=== PATIENT | female | born 1960 | race Caucasian/White ===

== ENCOUNTER 2017-01-30 18:37 | Emergency (ER) | payer BC, OTHER ==
[~2017-01-30] VITALS: Ht 165.1 cm; Wt 137.3 kg
[~2017-01-30 18:37] MED LIST: CHLO4TAB PO; LEVO200T28 PO; LSX40 PO; PTDOPS OPB
[2017-01-30 18:41] VITALS: TEMP 36.6; Ht 165.1 cm; Wt 137.3 kg
[2017-01-30] MEDS ORDERED: GABA1CAP4 PO (18:57)
[2017-01-30] MEDS ORDERED: SYN200 PO (18:57)
[2017-01-30] MEDS ORDERED: FURO40TA3 PO (18:57)
--- NOTE | 2017-01-30 19:12 | DIAGNOSTIC IMAGING REPORT ---
LEFT FOOT MIN 3 VIEWS ROUTINE CLINICAL HISTORY: Left foot pain status post trauma COMPARISON: None. DISCUSSION: There is a nondisplaced transverse fracture through the base the fifth metatarsal. There are no subluxations. Osteoarthritic changes are present at the level the first metatarsal phalangeal joint. There is a plantar calcaneal spur. There is a calcification the region the posterior plantar fascia. There is a talar beak. There is a small corticated ossicle at the level of the talonavicular joint. IMPRESSION: Acute nondisplaced transverse fracture through the base of the fifth metatarsal Electronically signed by: Sid Maldonado M.D. 01/30/2017 7:11 PM Dictated Date/Time: 01/30/2017 7:09 PM
[2017-01-30] MEDS ORDERED: NORCO 5/325MG HOME PACK PO ONE (19:30)
[2017-01-30 19:59] VITALS: BP 154/104; PULSE 75; O2SAT 97
--- NOTE | 2017-01-30 20:20 | EMERGENCY ROOM VISIT NOTE ---
ED Visit Note First contact with patient: 18:48 CHIEF COMPLAINT: Left Foot injury This 56-year-old white female patient sustained an injury to the left foot earlier today when she got up to walk but noticed her foot was numb. It had fallen asleep. She tried to ambulate but twisted her foot awkwardly. She heard a snap or crack. She had immediate onset of pain. Pain persists as worse with weight-bearing. No prior history of significant foot injury. Mild swelling has developed. No current numbness or weakness. No ankle pain. Her mother accompanies her today. Patient denies any knee pain. REVIEW OF SYSTEM: HEENT: No dizziness, visual problems, hearing loss, or tinnitus. There is no difficulty swallowing and no oral lesions are present. PULMONARY: No cough, shortness of breath, sputum production or hemoptysis. CARDIOVASCULAR: No chest pain, palpitations, shortness of breath or peripheral edema. GASTROINTESTINAL: No diarrhea, constipation, nausea, vomiting, or abdominal pain. GENITOURINARY: No dysuria, frequency, urgency or nocturia. NEUROLOGIC: No weakness, muscle tenderness, epilepsy or history of neurological problems. MUSCULOSKELETAL: No history of joint tenderness/swelling. No history of arthritis or arthralgias. SKIN: No rashes or lesions. PSYCHIATRIC: No history of depression or mental illness. ENDOCRINE: No history of diabetes or abnormal hair growth. PMH: Significant for history of bronchitis, pneumonia, GERD, and cholecystitis. Known osteoarthritis. Obesity. IBS. Previous surgeries: Cholecystectomy, right and left carpal tunnel releases, bilateral knee replacements, thyroid lobectomy Family history: Significant for diabetes, heart disease, hypertension, cancer, kidney stones. Allergies: Codeine, Percocet, sulfa, tetracycline, tramadol, prednisone Current medications: Reviewed and filed in patient's chart SOCIAL HISTORY: Patient lives at home by herself. Employed. No tobacco use, occasional EtOH use. PHYSICAL EXAM: Vital Signs: Reviewed Nurse's notes. Afebrile. GENERAL: Alert, oriented and coherent, not in acute distress. Laying on a bed. Skin: Warm and dry with good turgor. No rashes or lesions. No ecchymosis or erythema. Mild edema present over the lateral aspect of the left foot. The patient is not diaphoretic. No abrasions. Foot: There is tenderness and swelling over the fifth metatarsal dorsally, laterally, and on the plantar surface, but no deformity. No pain with palpation over the malleoli, Achilles, calcaneus. No pain with palpation over the first through fourth metatarsals. Intact motor function of the toes. Intact motor function to the ankle. Resisted eversion increases pain. Passive inversion also increases pain. Neurologic: Gross sensation is intact across the foot and ankle by soft touch. Peripheral pulses are 2+. EMERGENCY DEPARTMENT COURSE: An X-ray of the foot shows a nondisplaced fracture of the fifth metatarsal base. This was read by radiology. TREATMENT: Patient was educated regarding today's findings. Conservative care measures were discussed. She was placed in a low candidate for protection and support. She has crutches. Weight-bear as tolerated in the boot. It should be on for all activity other than bathing and sleep. Ice and elevation frequently for the next 3 days. Use a compression wrap if needed. Tylenol 650 mg every 6 hours for the pain. Supplement with Mobitz 15 mg once a day. If that is not enough, she has Girard 5 mg at home. Additional home pack was provided. Avoid weight bearing and use crutches until the pain subsides. Follow up with her orthopedic surgeon this week for reexamination. DIAGNOSIS: Left foot nondisplaced fifth metatarsal fracture Problem List Medical Problems: (1) GERD (gastroesophageal reflux disease) Status: Chronic (2) Osteoarthritis Status: Chronic Current/Historical Medications Scheduled Furosemide (Lasix), 40 MG PO DAILY Gabapentin (Gabapentin), 300 MG PO TID Levothyroxine Sodium (Synthroid), 200 MCG PO DAILY Spironolactone (Spironolactone), 25 MG PO BID Allergies Coded Allergies: Codeine (Verified Allergy, Unknown, ITCHING, 08/07/14) Oxycodone (Verified Allergy, Unknown, LONG AGO WAS ITCHY, HYDOCODONE IS OK , 08/07/14) PER DR NGO'S ORDER 07/14/09, PT STATES SHE CAN TAKE OXYCODONE EVEN THOUGH SHE EXPERIENCED ALLERGY TO OXYCODONE Sulfa Drugs (Verified Allergy, Unknown, SWOLLEN & RASH A CHILD, ) Tetracycline (Verified Allergy, Unknown, HEADACHES, 08/07/14) Tramadol (Verified Allergy, Unknown, ITCHINESS, 08/07/14) Vital Signs Date Time Temp Pulse Resp B/P Pulse Ox O2 Delivery O2 Flow Rate FiO2 01/30/17 19:59 75 18 154/104 97 01/30/17 18:41 36.6 75 18 150/90 97 Room Air Medications Administered Medications (Trade) Dose Ordered Sig/Neli Route Start Time Stop Time Status Last Admin Dose Admin Acetaminophen/ Hydrocodone Bitart (Girard 5/325mg Home Pack) 1 homepack UD ONCE PO 01/30/17 19:30 01/30/17 19:31 DC 01/30/17 19:52 1 HOMEPACK Departure Information Impression Primary Impression: Fracture of metatarsal bone Dispostion Home / Self-Care Condition GOOD Referrals Elliot Dickey MD Forms HOME CARE DOCUMENTATION FORM, SPECIAL NARCOTICS INSTRUCTIONS, TYLENOL USE, IMPORTANT VISIT INFORMATION Patient Instructions My [facility] Additional Instructions Use crutches until you can walk without a limp- weight-bear as tolerable in the boot Ice and elevate intermittently x3 days, and then use moist heat Tylenol every 6 hours as needed for pain Add Mobic once per day Gentle motion daily See your orthopedist this for reexamination-call tomorrow for an appointment You do not need the boot for sleeping or bathing but it should be on at all other times Girard one to 2 tablets every 6 hours as needed for severe pain-no driving
[2017-01-30] MEDS ORDERED: SPR25 PO (21:20)
== END 2017-01-30 20:00 | disposition home or self-care (01) ==
LOC: C.EDB 18:38 → C.EDD 20:00
DX: S92.302A Fracture of unspecified metatarsal bone(s), left foot, initial encounter for closed fracture (principal); X50.9XXA Other and unspecified overexertion or strenuous movements or postures, initial encounter; M19.90 Unspecified osteoarthritis, unspecified site

== ENCOUNTER → 2017-09-16 | Outpatient (CLI) | payer BC ==
[~2017-09-16] MED LIST changes: -CHLO4TAB PO; +FURO40TA3 PO; +GABA1CAP4 PO; -LEVO200T28 PO; -LSX40 PO; -PTDOPS OPB; +SPR25 PO; +SYN200 PO
--- NOTE | 2017-09-20 15:29 | MAMMOGRAPHY REPORT ---
BILATERAL DIGITAL SCREENING MAMMOGRAM TOMOSYNTHESIS WITH CAD: 09/16/2017 CLINICAL HISTORY: Routine screening. Patient has no complaints. TECHNIQUE: Breast tomosynthesis in addition to standard 2D mammography was performed. Current study was also evaluated with a Computer Aided Detection (CAD) system. COMPARISON: Comparison is made to exams dated: 08/12/2016 mammogram, 08/11/2015 mammogram, 4 mammogram, 08/06/2013 mammogram, 05/24/2011 mammogram, and 05/15/2010 mammogram - [facility]. BREAST COMPOSITION: There are scattered areas of fibroglandular density in both breasts. FINDINGS: No suspicious masses, calcifications, or areas of architectural distortion are noted in ei ther breast. There has been no significant interval change compared to prior exams. Asymmetry with a ssociated punctate calcifications in the right upper outer quadrant is stable compared to multiple pr ior exams including the 2010 exam, and considered benign given long-term stability. IMPRESSION: ACR BI-RADS CATEGORY 2: BENIGN There is no mammographic evidence of malignancy. A 1 year screening mammogram is recommended. The pa tient will receive written notification of the results. Approximately 10% of breast cancers are not detected with mammography. A negative mammographic report should not delay biopsy if a clinically suggestive mass is present. Vesta Fritz M.D. /:09/16/2017 16:26:28 Chief Construction Inspector: Ester RAMOS)(Danial)([place]), [facility] letter sent: Normal 1/2 BI-RADS Code: ACR BI-RADS Category 2: Benign
== END | disposition home or self-care (01) ==
LOC: C.MAMM 13:46
PROVIDERS: ATTEND Obstetrics & Gynecology
DX: Z12.31 Encounter for screening mammogram for malignant neoplasm of breast (principal)

== ENCOUNTER 2020-02-06 16:16 | Inpatient (IN) ==
--- NOTE | 2020-02-06 16:40 | Anesthesiology Consultation ---
Date of Service February 06, 2020 Assessment & Plan Chart Review Chart Review: Acceptable Risk for Surgery and Patient NOT seen in Pre Admission Testing Consults Requested none ASA [id number] Proposed Anesthesia Anesthesia Type: General Risk / Benefits Reviewed With: PT / POA / Parent / Guardian, Accepts Plan and Informed Consent Obtained History Surgery Operation Date: 02/06/20 09:20 Proposed Procedures p Left Knee Closed Reduction Total Knee Arthroplasty - Radu Campbell, Height/Weight Height: 5 ft 5 in Weight: 134.263 kg Allergies Allergy/AdvReac Type Severity Reaction Status Date / Time codeine Allergy Unknown ITCHING Verified 02/06/20 16:31 oxycodone Allergy Unknown LONG AGO Verified 02/06/20 16:31 WAS ITCHY, HYDOCODONE IS OK Sulfa (Sulfonamide Allergy Unknown SWOLLEN & Verified 02/06/20 16:31 Antibiotics) RASH A CHILD tetracycline Allergy Unknown HEADACHES Verified 02/06/20 16:31 tramadol Allergy Unknown ITCHINESS Verified 02/06/20 16:31 Medications Home Medications Medication Instructions Recorded Confirmed Last Taken bupropion HCl 150 mg PO BID 02/05/20 02/06/20 02/06/20 furosemide 40 mg PO DAILY 02/05/20 02/06/20 02/04/20 gabapentin 300 mg PO TID 02/05/20 02/06/20 02/06/20 05:00 hydrocodone-acetaminophen [[place]] 1 tab PO Q6H PRN #12 tab 02/05/20 02/06/20 02/06/20 11:00 levothyroxine [Synthroid] 200 mcg PO DAILY 02/05/20 02/06/20 02/06/20 05:00 spironolactone 25 mg PO BID 02/05/20 02/06/20 02/04/20 NPO Date Last Intake of Fluids: 02/06/20 Time Last Intake of Fluids: 13:00 Date Last Intake of Solids: 02/06/20 Time Last Intake of Solids: 13:00 Past Medical History Medical History Carpal tunnel syndrome on both sides (Acute) Cholecystectomy planned (Acute) Exercise / Class Metabolic Activity III < 4 Walking/Shop/Light housework Past Anesthesia History No Hx of Anesthesia Complications and No Family Hx of Anesthesia Complications History of PONV No Hx of PONV and No Hx of Motion Sickness Social History Smoking Status: Never smoker Physical Exam Constitutional + morbidly obese ENMT Mouth: no dentition abnormality Thyromental Distance: < 3.5 Finger Breadths Mallampati Class: II Neck normal visual inspection and trachea midline; neck extension not limited Respiratory normal respiratory effort Auscultation: lungs clear to auscultation bilaterally Cardiovascular Rate/Rhythm: regular rate and regular rhythm Heart Sounds: no murmur Vessels: no carotid bruit Musculoskeletal Spine: normal cervical ROM Extremities: extremities normal to inspection Neurologic moves all extremities Motor/Sensory: no sensory deficit Psychiatric Orientation: alert and oriented x 3 Testing Chest X-Ray Date: 10/24/19 Findings: + NAD Echocardiogram Date: 03/05/14 EF: 65 LV Function: normal RWMA: + none Valvular Disease: + no significant valvular disease
[2020-02-06] MEDS ORDERED: MIDAZOLAM HCL 1 MG/ML 2ML VIAL ONE (16:41)
[2020-02-06] MEDS ORDERED: fentaNYL citrate 100 MCG/2 ML VIAL ONE (16:42)
[2020-02-06] MEDS ORDERED: LACTATED RINGER'S 1,000 ML IV SCH (17:00)
[2020-02-06] MEDS ORDERED: PROPOFOL IV EMULSION 10 MG/ML 20 ML VIAL IV ONE (17:50)
[2020-02-06] MEDS ORDERED: ONDANSETRON INJ 2 MG/ML 2 ML VIAL ONE (17:50)
[2020-02-06] MEDS ORDERED: LIDOCAINE HCL 2% 2 ML VIAL/AMP(20MG/ML) INFIL ONE (17:50)
[2020-02-06] MEDS ORDERED: SUCCINYLCHOLINE 100MG/5ML SYR ONE (17:50)
--- NOTE | 2020-02-06 18:00 | Post Operative Brief Note ---
Immediate Post Op Note v1 Date of Surgery February 06, 2020 Pre & Post Diagnosis Operation Date: 02/06/20 09:20 Pre-Op Diagnosis: Left Knee Total Knee Arthroplasty Dislocation Post-Op Diagnosis: Left Knee Total Knee Arthroplasty Dislocation I identified the patient and participated in the time-out.: Yes Procedure Operation Date: 02/06/20 09:20 Actual Procedures p Left Knee Closed Reduction Total Knee Arthroplasty(Left) - Radu Campbell DO - [id number] Surgeon Radu Campbell DO Tick Inspector None Estimated Blood Loss 0 Findings Consistent with Post-Op Diagnosis Specimens None Anesthesia Type General Complications none Disposition Disposition: Recovery Room Overlapping Procedure I was present for: the critical portions of procedure. I was immediately available: during the entire case. Back up surgeon: was not required during procedure.
[2020-02-06] MEDS ORDERED: ePHEDrine sulfate 50 MG/ML AMP IV PRN (18:16)
[2020-02-06] MEDS ORDERED: LABETALOL HCL IV 5 MG/ML 20ML IV PRN (18:16)
[2020-02-06] MEDS ORDERED: ATROPINE SULFATE 0.1 MG/ML 10ML SYR IV PRN (18:16)
[2020-02-06] MEDS ORDERED: PROMETHAZINE HCL 12.5 MG in SODIUM CHLORIDE 0.9% 50 ML IV PRN (18:16)
[2020-02-06] MEDS ORDERED: ONDANSETRON INJ 2 MG/ML 2 ML VIAL IV PRN ×2 (18:16→18:54)
[2020-02-06] MEDS ORDERED: FLUMAZENIL 0.1 MG/1 ML 10 ML VIAL IV PRN (18:16)
[2020-02-06] MEDS ORDERED: NALOXONE HCL 0.4 MG/1 ML VIAL/CARP IV PRN ×2 (18:16→18:54)
[2020-02-06] MEDS ORDERED: fentaNYL citrate 100 MCG/2 ML VIAL IV PRN (18:16)
--- NOTE | 2020-02-06 18:36 | Anesthesiology Progress Note ---
Date of Service February 06, 2020 Anesthesia Post Procedure Vital Signs Vital Signs: Temp Pulse Pulse Resp BP Pulse Ox 02/06/20 18:25 66 15 118/63 97 02/06/20 18:15 72 19 123/64 100 02/06/20 18:07 36.4 C L 77 17 118/60 100 02/06/20 16:50 36.8 C 70 18 148/60 H 96 Pain Intensity Left Knee: Pain Intensity: 9 Transfer of Care Handoff Completed per policy Notes Mental Status: alert / awake / arousable Patient Amnestic to Procedure: Yes Nausea / Vomiting: adequately controlled Pain: adequately controlled Airway Patency, RR, SpO2: stable & adequate BP & HR: stable & adequate Hydration State: stable & adequate Anesthetic Complications: no major complications apparent
--- NOTE | 2020-02-06 18:37 | Fluoroscopy Report ---
FL knee LT 1 or 2V CLINICAL HISTORY: LT KNEE CLOSED REDUCTION COMPARISON STUDY: Left knee radiographs February 05, 2020. FLUOROSCOPY TIME: 11 seconds. FLUOROSCOPIC IMAGES: 2 FINDINGS: Alignment of the left knee arthroplasty is anatomic post reduction. No fracture is identifi ed by fluoroscopy. IMPRESSION: Anatomic alignment of the left knee arthroplasty post reduction. ACT 112: Negative or not required by law. Electronically signed by: Rocky Medina M.D. 02/06/2020 6:36 PM
--- NOTE | 2020-02-06 18:45 | XRay Report ---
XR knee LT 1 or 2V routine CLINICAL HISTORY: Post closed reduction, in PACU, 2 view COMPARISON: 02/05/2020 DISCUSSION: There has been interval reduction in the previous described subluxation. No acute fractur es or subluxations are evident. There are postsurgical changes of a total knee arthroplasty. IMPRESSION: 1. Total knee arthroplasty 2. No acute fractures or subluxations identified ACT 112: Negative or not required by law. Electronically signed by: Sid Maldonado M.D. 02/06/2020 6:44 PM
[2020-02-06] MEDS ORDERED: DiphenhydrAMINE HCL 50 MG/ML VIAL IV PRN (18:54)
[2020-02-06] MEDS ORDERED: OXYCODONE HCL IR 5 MG TAB (IMMEDIATE RELEASE) PO PRN (18:54)
[2020-02-06] MEDS ORDERED: ACETAMINOPHEN 325 MG TAB PO PRN (18:54)
[2020-02-06] MEDS: SODIUM CHLORIDE 0.9% 1000ML 1,000 ML IV SCH (19:45)
--- NOTE | 2020-02-06 19:55 | Operative Report ---
Post Operative Report Pre & Post Diagnosis Operation Date: 02/06/20 09:20 Pre-Op Diagnosis: Left Knee Total Knee Arthroplasty Dislocation Post-Op Diagnosis: Left Knee Total Knee Arthroplasty Dislocation I identified the patient and participated in the time-out.: Yes Procedure Operation Date: 02/06/20 09:20 Actual Procedures p Left Knee Closed Reduction Total Knee Arthroplasty(Left) - Radu Campbell DO Surgeon Radu Campbell DO Ob Gyn None Estimated Blood Loss 0 Findings Consistent with Post-Op Diagnosis Specimens none Drains none Anesthesia Type General Complications none Disposition Disposition: Recovery Room Indications The patient is a 59-year-old female who presented to my office today on 02/06/2020 with reports of 1 day history of severe left knee pain and inability to ambulate status post mechanical fall. Was seen at [facility] emergency department on 02/05/2020 and discharged with outpatient follow- up. I reviewed x-rays today as well as x-rays taken at [facility] 1 day prior which demonstrated a posterior dislocation of the patient's left total knee arthroplasty. This was unreducible in the office. I suspect teresa coulter jumped her post. Immediately I had the patient sent to [facility] for direct admission and emergent closed reduction of left total knee arthroplasty. I have indicated the patient for emergent closed reduction of left total knee arthroplasty. I have deemed this case emergent secondary to risk of permanent injury to neurovascular structures including injury to the popliteal artery which could result in permanent disability and even loss of limb. The patient also had a delayed presentation and has been dislocated for over 24 hours. The risks, benefits, complications and alternatives to the procedure were explained to the patient detail which include however not limited to injury to surrounding nerves, bone, vessels, soft tissue, arthrofibrosis, chronic pain, recurrent instability, need for surgery, loss of limb and loss of life. Alternatives include no reduction which could result and worsening clinical picture and even loss of the limb. Patient wished proceed with closed reduction of left total knee arthroplasty and informed consent was obtained at this time. Description of Procedure Upon arrival to the operating room the patient was transferred to the OR table. Following the application of adequate general anesthesia a time out was performed, patient identified and site yoselin verified. Gentle flexion, traction, anterior drawer and extension was applied to the left total knee, a appreciable clunk was felt. Utilizing C arm fluoroscopy x-rays taken which demonstrate relocated total knee prosthesis without fracture or persistent dislocation. The knee was gently taken through full range of motion and was found to be stable. We then placed the left lower extremity into a knee immobilizer. The patient was extubated in the operating room and transferred to the PACU in stable condition. They tolerated the procedure well. I attest to the content of the Intraoperative Record and any orders documented therein. Any exceptions are noted below.
--- NOTE | 2020-02-06 19:58 | Orthopedic Progress Note ---
Date of Service February 06, 2020 Assessment & Plan (1) Left knee dislocation: s/p closed reduction left total knee -dvt ppx: SCDs, Teds, early ambulation -WBAT LLE in KI -PT/OT, maintain KI -PO XR demonstrates a well aligned well fixed total knee prothesis without fracture/dislocation -CITLALLI pending -DC planning (2) Failed total knee arthroplasty: Admission and Anticipated Discharge Date Admission Date: February 06, 2020 Subjective Post Operative Progress Note Patient seen in PACU, comfortable, denies complaints, pain well controlled, no acute issues. Review of Systems Review of Systems: All systems reviewed & are unremarkable except as noted in HPI & below Constitutional: as per Subjective / HPI Physical Exam Physical Exam: LLE NVSI +EHL/FHL/TA/GS SILT grossly, +2 DP pulse, compartments soft NT, KI in place Constitutional: WD/WN, vitals as above Results & Data ([facility]) Vital Signs (Past 12 Hours) Vital Signs Temp Pulse Pulse Pulse Resp BP Pulse Ox 02/06/20 19:12 36.7 C 64 16 115/70 97 02/06/20 18:50 36.5 C 65 14 115/68 97 02/06/20 18:45 36.6 C 61 16 120/66 94 02/06/20 18:35 65 13 115/67 97 02/06/20 18:25 66 15 118/63 97 02/06/20 18:15 72 19 123/64 100 02/06/20 18:07 36.4 C L 77 17 118/60 100 02/06/20 16:50 36.8 C 70 18 148/60 H 96
[2020-02-06] MEDS: SPIRONOLACTONE 25 MG TAB PO SCH (20:51)
[2020-02-06] MEDS: GABAPENTIN 300 MG CAP PO SCH (20:52)
[2020-02-06] MEDS: BuPROPion SR 150 MG TABCR PO SCH (20:52)
[2020-02-06] MEDS: HYDROCODONE/ACETAMOPHEN 5/325MG TAB PO PRN (22:10)
--- NOTE | 2020-02-06 22:51 | Ultrasound Report ---
US ankle/brachial index ltd CLINICAL HISTORY: left knee dislocation, s/p closed reduction evaluate for arterial insufficiency COMPARISON STUDY: No previous studies for comparison. FINDINGS: Brachial arm systolic arterial pressures measured 117 mmHg in the right, and 116 mmHg on the left. Posterior tibial systolic arterial pressures measured 155 mmHg on the right and 131 mmHg on the left. Dorsalis pedis systolic arterial pressures measured 129 mmHg on the right, and 109 mmHg on the left. Ankle brachial indices were normal measuring 1.3 on the right and 1.1 and the left. IMPRESSION: 1. Normal bilateral ankle brachial indices measuring 1.3 on the right and 1.1 and the left ACT 112: Negative or not required by law. Electronically signed by: Sid Maldonado M.D. 02/06/2020 10:49 PM
[2020-02-07] MEDS: HYDROCODONE/ACETAMOPHEN 5/325MG TAB PO PRN ×2 (06:21→13:52)
[2020-02-07] MEDS ORDERED: LEVOTHYROXINE SODIUM 200 MCG TABLET PO SCH (06:30)
[2020-02-07] MEDS: SODIUM CHLORIDE 0.9% 1000ML 1,000 ML IV SCH (07:31)
[2020-02-07 07:46] LABS: Hematocrit (blood only) 38.9 % (37-47); Hemoglobin 12.7 g/dL (12.0-16.0); Mean Corpuscular Hemoglobin 29.9 pg (25-34); Mean Corpuscular Hgb Conc 32.6 g/dL (32-36); Mean Corpuscular Volume 91.5 fL (80-100); Mean Platelet Volume 10.5 fL (7.4-10.4); Platelet Count 194 K/uL (130-400); RDW Coefficient of Variation 13.6 % (11.5-14.5); RDW Standard Deviation 45.4 fL (36.4-46.3); Red Blood Count 4.25 M/uL (4.2-5.4); White Blood Count 4.19 K/uL (4.8-10.8)
[2020-02-07 08:19] LABS: Calcium 8.6 mg/dl (8.5-10.1); Creatinine Clr Calc Pharmacy 82.6 ml/min; Est GFR (African American) 69.4; Est GFR (Non-African American) 59.9
--- NOTE | 2020-02-07 08:24 | Orthopedic Progress Note ---
Date of Service February 07, 2020 Assessment & Plan (1) Left knee dislocation: s/p closed reduction left total knee -dvt ppx: SCDs, Teds, early ambulation -WBAT LLE in KI -PT/OT, maintain KI -PO XR demonstrates a well aligned well fixed total knee prothesis without fracture/dislocation -CITLALLI normal -DC planning - DC home once fitted for hinge knee brace today (2) Failed total knee arthroplasty: Admission and Anticipated Discharge Date Admission Date: February 06, 2020 Subjective Post Operative Progress Note Patient seen sitting up in bed, comfortable, denies complaints, pain well controlled, no acute issues. Denies F/C/N/V/SOB/CP, tolerating pain medication. Review of Systems Review of Systems: All systems reviewed & are unremarkable except as noted in HPI & below Constitutional: as per Subjective / HPI Physical Exam Physical Exam: LLE NVSI +EHL/FHL/TA/GS SILT grossly, +2 DP pulse, compartments soft NT Constitutional: WD/WN, vitals as above Results & Data ([facility]) Vital Signs (Past 12 Hours) Vital Signs Temp Pulse Resp BP Pulse Ox 02/07/20 07:43 36.9 C 66 18 117/75 95 02/07/20 03:29 36.7 C 62 16 106/70 98 02/06/20 23:10 36.5 C 67 16 104/67 96 02/06/20 22:08 36.6 C 67 16 114/69 97 02/06/20 21:16 36.5 C 71 16 110/68 95 Laboratory Results 02/07/20 02/07/20 Range/Units 06:58 06:58 WBC 4.19 L (4.8-10.8) K/uL RBC 4.25 (4.2-5.4) M/uL Hgb 12.7 (12.0-16.0) g/dL Hct 38.9 (37-47) % MCV 91.5 (80-100) fL MCH 29.9 (25-34) pg MCHC 32.6 (32-36) g/dL RDW Std Deviation 45.4 (36.4-46.3) fL RDW Coeff of Rodrigo 13.6 (11.5-14.5) % Plt Count 194 (130-400) K/uL MPV 10.5 H (7.4-10.4) fL Sodium 140 (136-145) mmol/L Potassium (3.5-5.1) mmol/L Chloride 108 H (98-107) mmol/L Carbon Dioxide 28 (21-32) mmol/L Anion Gap 4.0 (3-11) BUN 10 (7-18) mg/dl Creatinine 1.03 (0.6-1.2) mg/dl Est Cr Clr Drug Dosing 82.6 ml/min Est GFR ( Amer) 69.4 Est GFR (Non-Af Amer) 59.9 BUN/Creatinine Ratio 10.0 (10-20) Glucose 101 H (70-99) mg/dl Calcium 8.6 (8.5-10.1) mg/dl
[2020-02-07] MEDS ORDERED: FUROSEMIDE 40 MG TAB PO SCH (09:00)
[2020-02-07] MEDS: BuPROPion SR 150 MG TABCR PO SCH (09:57)
[2020-02-07] MEDS: GABAPENTIN 300 MG CAP PO SCH ×2 (09:57→13:46)
[2020-02-07] MEDS: SPIRONOLACTONE 25 MG TAB PO SCH (09:57)
--- NOTE | 2020-02-07 15:57 | Discharge Summary ---
Date of Service February 07, 2020 Admission HPI Per Admitting Provider The patient is a 59-year-old female who presented to my office today on 02/06/2020 with reports of 1 day history of severe left knee pain and inability to ambulate status post mechanical fall. Was seen at [facility] emergency department on 02/05/2020 and discharged with outpatient follow- up. I reviewed x-rays today as well as x-rays taken at [facility] 1 day prior which demonstrated a posterior dislocation of the patient's left total knee arthroplasty. This was a reducible in the office. I suspect she jumped her post. Immediately I had the patient sent to [facility] for direct admission and emergent closed reduction of left total knee arthroplasty. I have indicated the patient for emergent closed reduction of left total knee arthroplasty. I have deemed this case emergent secondary to risk of permanent injury to neurovascular structures including injury to the popliteal artery which could result in permanent disability and even loss of limb. The patient also had a delayed presentation and has been dislocated for over 24 hours. The risks, benefits, complications and alternatives to the procedure were explained to the patient detail which include however not limited to injury to surrounding nerves, bone, vessels, soft tissue, arthrofibrosis, chronic pain, recurrent instability, need for surgery, loss of limb and loss of life. Alternatives include no reduction which could result and worsening clinical picture and even loss of the limb. Patient wished proceed with closed reduction of left total knee arthroplasty and informed consent was obtained at this time. Principal Diagnosis Dislocation left total knee arthroplasty -closed reduction left total knee Discharge Exam LLE NVSI +EHL/FHL/TA/GS SILT grossly, +2 DP pulse, compartments soft NT, KI in place. Constitutional WD/WN, vitals as above Discharge Data Allergies Allergy/AdvReac Type Severity Reaction Status Date / Time codeine Allergy Unknown ITCHING Verified 02/06/20 16:31 oxycodone Allergy Unknown LONG AGO Verified 02/06/20 16:31 WAS ITCHY, HYDOCODONE IS OK Sulfa (Sulfonamide Allergy Unknown SWOLLEN & Verified 02/06/20 16:31 Antibiotics) RASH A CHILD tetracycline Allergy Unknown HEADACHES Verified 02/06/20 16:31 tramadol Allergy Unknown ITCHINESS Verified 02/06/20 16:31 Procedures Performed Operation Date: 05/13/20 09:20 Actual Procedures p Left Knee Closed Reduction Total Knee Arthroplasty(Left) - Radu Campbell DO Ordered Studies 02/06/20 16:42 FL fluoroscopy <1hr Routine 02/06/20 16:43 FL knee LT 1 or 2V Routine 02/06/20 20:00 US ankle brachial index [US ankle/brachial index ltd] Urgent Hospital Course (1) Left knee dislocation: The patient is a 59-year-old female who presented to my office today on 02/06/2020 with reports of 1 day history of severe left knee pain and inability to ambulate status post mechanical fall. Was seen at [facility] emergency department on 02/05/2020 and discharged with outpatient follow- up. I reviewed x-rays today as well as x-rays taken at [facility] 1 day prior which demonstrated a posterior dislocation of the patient's left total knee arthroplasty. This was a reducible in the office. I suspect she jumped her post. Immediately I had the patient sent to [facility] for direct admission and emergent closed reduction of left total knee arthroplasty. I have indicated the patient for emergent closed reduction of left total knee arthroplasty. I have deemed this case emergent secondary to risk of permanent injury to neurovascular structures including injury to the popliteal artery which could result in permanent disability and even loss of limb. The patient also had a delayed presentation and has been dislocated for over 24 hours. The risks, benefits, complications and alternatives to the procedure were explained to the patient detail which include however not limited to injury to surrounding nerves, bone, vessels, soft tissue, arthrofibrosis, chronic pain, recurrent instability, need for surgery, loss of limb and loss of life. Alternatives include no reduction which could result and worsening clinical picture and even loss of the limb. Patient wished proceed with closed reduction of left total knee arthroplasty and informed consent was obtained at this time. Hospital Course: On 02/06/20 the patient was taken to the operating room, adequate anesthesia administered and underwent closed reduction of left total knee arthroplasty. The patient tolerated the procedure well and was taken to the PACU in stable condition. The patient was admitted for overnight observation and vascular studies. Consults were placed to physical therapy, occupational therapy and case management. CITLALLI was obtained and normal. On POD#1, the patient did well overnight and their pain was well controlled. Labs were drawn and the Hgb was 12.7. The patient progressed well with PT. The patients hospital stay was relatively uneventful and they were deemed stable by the orthopedic team and consultants to be discharged home with self care on 02/07/20. Discharge Instructions: Upon discharge the patient may weight bear as tolerates through their operative extremity. Maintain knee immobilizer at all times, remove for hygiene purposes. The patient was instructed to not drive or travel for long distances until cleared to do so. If the patient develops any symptoms of fevers, chills, nausea, vomiting, increased redness, swelling, pain or drainage from the surgical site, they should notify the office and/or proceed to the nearest emergency room. The patient should follow up in 10-14 days after surgery for their routine post-operative follow-up appointment and should call the office to confirm the date and time. s/p closed reduction left total knee -dvt ppx: SCDs, Teds, early ambulation -WBAT LLE in KI -PT/OT, maintain KI -PO XR demonstrates a well aligned well fixed total knee prothesis without fracture/dislocation -CITLALLI normal -DC planning - DC home once fitted for hinge knee brace today (2) Failed total knee arthroplasty: Total Time Total Time Spent Total Time Spent (In Minutes): 30 minutes Discharge Plan Discharge Items Patient Disposition: Home - Self-Care Reason For Visit: Left Knee Total Knee Arthroplasty Dislocation Discharge Diagnosis: Closed reduction left total knee -Left total knee dislocation Condition on Discharge: Good Activity: Per Instructions section Lifting: Wait until after follow-up appointment Bathing: No limitations Sexual Activity: Wait until after follow-up appointment Exercise/Sports: Wait until after follow-up appointment Driving/Machine Use: No driving Weightbearing: Full weightbearing Weightbearing Comment: May weight bear as tolerates in knee immobilizer Non-emergency contact: Primary Care Provider and Surgeon Call non-emergency contact if: you have any medication questions, your symptoms worsen, your pain is not controlled, your pain is worsening, your pain is unusual for you, your pain is concerning for you, you have a fever, your temperature is above 101.5, your wound has increased redness, your wound has increased drainage and your wound pain has increased Follow-up/Referrals: Joce Baltazar MD [Primary Care Provider] - Diet: Regular Addtl Attending Provider Instructions: ACTIVITY RECOMMENDATIONS: SELF CARE INSTRUCTIONS AFTER TOTAL KNEE DISLOCATION A. You may need to continue a physical therapy program after discharge from the hospital. There are several options available to you. Your doctor will assist you in selecting the best one for you. 1. An out-patient facility 2 to 3 times a week for therapy or home therapy. 2. Continue working on all exercises taught to you in the hospital. B. Make walking a part of your daily routine. Be up as much as comfortable with rest periods throughout the day. Rest with leg elevation is very important. Use the ice wrap frequently for the first 3-4 weeks. C. Limit your activity until your follow up appointment. D. Wear the long elastic stockings (KARISHMA hose) 20 hours a day for 2 weeks after surgery. They can be removed several times a day for laundering and for a bath. SPECIAL CARE INSTRUCTIONS: VERY IMPORTANT TO READ AND REVIEW A. There are a few signs you need to watch for after you are home. Call [facility] if you notice any of the followin. Increased severe knee pain. Some pain is expected especially when you exercise. 2. Increased swelling in your leg or knee; pain or swelling of the calf muscle in either lower leg. 3. Any fluid drainage from the incision. 4. Shortness of breath or chest pain. B. Please call [facility] at if you have any concerns or questions about your operation or recovery. The doctor or his nurse will return your call promptly. C. You must take antibiotics before dental work, bladder, bowel or other surgery. Your doctor will provide you with a permanent care to carry describing this precaution. IMPORTANT: * CALL IF INCREASED PAIN, REDNESS, DRAINAGE OR FEVER GREATER THAT 101. * WEAR KARISHMA HOSE 20 HOURS PER DAY FOR 2 WEEKS. FOLLOW UP VISIT: If appointment is not already scheduled: Please call [facility] to make a follow-up appointment for 2 weeks after your surgery at . Pending Studies at Discharge: No Stand-Alone Forms: My [employer], Smoking Cessation Medications and UT Order Prescriptions: New hydrocodone-acetaminophen 5-325 mg tablet 1 tab PO Q6H MDD 4 PRN (Reason: pain) Qty: 30 RF: 0 Continued furosemide 40 mg tablet 40 mg PO DAILY RF: 0 bupropion HCl 150 mg tablet sustained-release 12 hr 150 mg PO BID RF: 0 spironolactone 25 mg tablet 25 mg PO BID RF: 0 gabapentin 300 mg capsule 300 mg PO TID RF: 0 levothyroxine [Synthroid] 200 mcg tablet 200 mcg PO DAILY RF: 0 Discontinued hydrocodone-acetaminophen [[place]] 5-325 mg tablet 1 tab PO Q6H PRN (Reason: pain, severe) Qty: 12 RF: 0 Discharge Orders: Discharge Order (Routine); Ordered 02/07/20 Ordered By: Radu Campbell Admission Data Admit Date/Time: 02/06/20 18:17 Attending Provider: Radu Campbell Admit Provider: Radu Campbell Primary Care Provider: Joce Baltazar Other Interventions: Discharge Summary Assessment (RN) Last Done: 02/07/20 15:53 DC Date/Time DO NOT enter until pt leaves facility: 02/07/20 16:57
--- NOTE | 2020-02-12 05:58 | Coding Query ---
To promote full compliance with coding requirements relating to patient care, provider participation is requested in all cases of quill cleaning machine operator uncertainty. Please assist us with the question(s) below: Coding Question(s): The diagnosis(es) below were documented in the 01/29/20 Progress Note and Discharge Summary (the aspiration pneumonia part) with documentation of, "(1) Left lower lobe pneumonia: CXR on 01/21 showed small parenchymal infiltrate left base. - Worse CXR on 01/24. Added azithromycin after confirming with daughter that she is not really allergic. BioFire negative. MRSA swab negative.Covid is negative. - On 01/25, broadened to Unasyn to better cover anaerobic bacteria. -Switched to zosyn to cover aspiration pneumonia as well as urine bacteria." The Left Lower Lobe Pneumonia was documented throughout the record. Please indicate if each is still a possible diagnosis or ruled out. Physician's Response(s): ASPIRATION PNEUMONIA (documented in Progress Note 01/29/20 and Discharge Summary as shown above) ( ) Diagnosed and POA ( ) Diagnosed and not POA ( ) Ruled out ( ) Other (please specify) LEFT LOWER LOBE PNEUMONIA (documented throughout the record) ( ) Diagnosed and POA ( ) Diagnosed and not POA ( ) Ruled out ( ) Other (please specify) MTDD
--- NOTE | 2020-02-12 06:27 | Coding Query ---
BMI To promote full compliance with coding requirements relating to patient care, physician participation is requested in all cases of hospital personnel director uncertainty. Please assist us with the question(s) below: Please place an X within the parenthesis (x). If other, please document: BMI 49.4 was documented in this record for this patient. If the BMI is significant, please check the box that provides a more specific associated diagnosis: ( ) Overweight/Obese ( ) Obesity ( X) Morbid obesity ( ) Obesity Hypoventilation Syndrome (OHS) ( ) Heathy weight, not significant ( ) Underweight/Thin ( ) Other, please specify Thank you Estrella COWAN
== END 2020-02-07 16:57 | disposition home or self-care (01) | DRG 560 ==
LOC: ASU 16:16 → 3E 16:16 → OBSVTOIN 18:17

== ENCOUNTER 2025-07-26 11:06 | Observation (INO) ==
--- NOTE | 2025-06-17 16:17 | PAT Medication Instructions ---
Medication Instructions Date of Service June 17, 2025 Home Medications Medication Instructions Recorded furosemide 40 mg tablet 40 mg PO QAM #90 tabs 10/08/24 levothyroxine 200 mcg tablet 200 mcg PO QAM #90 tabs 10/08/24 meloxicam 7.5 mg tablet 7.5 mg PO DAILY PRN joint pain #60 10/08/24 tabs spironolactone 25 mg tablet 25 mg PO BID #180 tabs 10/08/24 metronidazole 0.75 % topical cream 1 applic topical DAILY #45 grams 01/21/25 doxycycline hyclate 100 mg capsule 100 mg PO .COMPLEX #45 caps 03/25/25 diazepam 5 mg tablet (Valium) 5 mg PO ONCE PRN anxiety #2 tabs 04/17/25 phentermine 37.5 mg capsule 37.5 mg PO DAILY #30 caps 05/21/25 furosemide 40 mg tablet 40 mg PO QAM levothyroxine 200 mcg tablet 200 mcg PO QAM meloxicam 7.5 mg tablet 7.5 mg PO DAILY PRN joint pain spironolactone 25 mg tablet 25 mg PO BID metronidazole 0.75 % topical cream 1 applic topical DAILY doxycycline hyclate 100 mg capsule 100 mg PO .COMPLEX diazepam 5 mg tablet (Valium) 5 mg PO ONCE PRN anxiety phentermine 37.5 mg capsule 37.5 mg PO DAILY Continue as directed doxycycline hyclate 100 mg capsule 100 mg PO .COMPLEX ASK your surgeon for instructions meloxicam 7.5 mg tablet 7.5 mg PO DAILY PRN joint pain STOP taking 24 hours before surgery metronidazole 0.75 % topical cream 1 applic topical DAILY DO NOT take the morning of surgery furosemide 40 mg tablet 40 mg PO QAM spironolactone 25 mg tablet 25 mg PO BID Take morning of surgery With a small sip of water, OTHERWISE NOTHING TO EAT OR DRINK AFTER MIDNIGHT: levothyroxine 200 mcg tablet 200 mcg PO QAM diazepam 5 mg tablet (Valium) 5 mg PO ONCE PRN anxiety (if needed) Take evening before surgery spironolactone 25 mg tablet 25 mg PO BID diazepam 5 mg tablet (Valium) 5 mg PO ONCE PRN anxiety (if needed) STOP taking 5 days before surgery phentermine 37.5 mg capsule 37.5 mg PO DAILY Other Notes If you have any questions please call us at [phone] or [phone] or [phone] or [phone]
--- NOTE | 2025-06-25 08:16 | Anesthesiology Consultation ---
Date of Service June 25, 2025 Assessment & Plan (1) Encounter for pre-operative examination: - Infectious disease screening: Per assessment on 06/25/25- No known recent infectious disease contacts or current infectious disease symptoms. - Outpatient joint assessment: Pt currently scheduled for inpatient pathway. If surgeon requests review for outpatient joint pathway, patient is not a recommended candidate for outpatient joint program from anesthesia standpoint based on available information. - Hx hypothyroidism/Hashimotos: TSH 0.418 (WNL) and free T4 1.74 (H) on 06/25/25. PCP made aware of TSH/Free T4 findings; PCP workload note/response 06/26/25: "No medication changes are needed prior to surgery. This was addressed at recent visit 06/18/2025 and we recommended recheck TSH in 3 months. TSH is now within normal limits & mild elevation is fT4 is irrelevant" Chart Review Chart Review: Acceptable Risk for Surgery (pending evlauation DOS) and Patient seen in Pre Admission Testing Teaching & Discussion Pre-Anesthesia Teaching/Discussion Notes: Instructed NPO after midnight before surgery,except medications with 15 cc of water. Medication instructions provided according to the PAT guidelines. History Surgery Operation Date: 07/26/25 09:00 Proposed Procedures p Right Total Shoulder Arthroplasty Reverse - Berto Humphrey, DO Height/Weight Height: 5 ft 5 in Weight: 120.5 kg Allergies Allergy/AdvReac Type Severity Reaction Status Date / Time kiwi Allergy Intermediate Eyes swell Verified 06/18/25 10:10 shut, rash pineapple Allergy Intermediate Eyes swell Verified 06/18/25 10:10 shut, rash Sulfa (Sulfonamide Allergy Intermediate Swelling, Verified 06/18/25 10:10 Antibiotics) rash (as child) magnesium sulfate AdvReac Intermediate Vomiting Verified 06/18/25 10:10 [From Sutab] potassium chloride AdvReac Intermediate Vomiting Verified 06/18/25 10:10 [From Sutab] sodium sulfate [From Sutab] AdvReac Intermediate Vomiting Verified 06/18/25 10:10 tetracycline AdvReac Mild Headaches Verified 06/18/25 10:10 Medications Home Medications Medication Instructions Recorded Confirmed Last Taken furosemide 40 mg tablet 40 mg PO QAM #90 tabs 10/08/24 06/18/25 Unknown levothyroxine 200 mcg tablet 200 mcg PO QAM #90 tabs 10/08/24 06/18/25 Unknown meloxicam 7.5 mg tablet 7.5 mg PO DAILY PRN joint pain #60 10/08/24 06/18/25 Unknown tabs spironolactone 25 mg tablet 25 mg PO BID #180 tabs 10/08/24 06/18/25 Unknown doxycycline hyclate 100 mg capsule 100 mg PO .COMPLEX #45 caps 03/25/25 06/18/25 Unknown phentermine 30 mg capsule 30 mg PO DAILY #30 caps 06/18/25 06/18/25 Unknown Past Medical History Medical History Chronic edema B/L LE Chronic per PCP records- on Lasix and Spironolactone Dermatitis Facial, reason for Doxy GERD (gastroesophageal reflux disease) Hx of hyperlipidemia hx borderline, no meds needed Hypothyroidism IBS (irritable bowel syndrome) Morbid obesity Neuropathy "mild", b/l thigh area, since knee replacement Osteoarthritis Primary hypertension Per records Past Family History Family History Aunt Breast cancer Family history of reaction to anesthesia paternal aunt gets sleepy after anesthesia Father Prostate cancer Family/Other Breast cancer Family history of reaction to anesthesia paternal cousin gets sleepy after anesthesia Mother Myocardial infarction Grandfather (Maternal) Myocardial infarction Grandmother (Maternal) Diabetes Myocardial infarction Denies family history of Ovarian cancer Colorectal cancer Past Surgical History Surgical History History of anesthesia reaction difficult to wake, sleepy for days, dizziness History of arthroscopy of right shoulder Right shoulder arthroscopy with RCR 03/24/23: Grade 2 view, MAC#4, ETT 7.0 + regional at [facility] History of cholecystectomy History of colonoscopy History of dilatation and curettage x 2 History of thyroid surgery sub total History of tooth extraction Nausea and vomiting after administration of anesthetic agent S/P knee replacement B/L S/P ORIF (open reduction internal fixation) fracture (~02/05/20) Left knee dislocation S/P right rotator cuff repair Status post carpal tunnel release of both wrists Past Anesthesia History Other * Patient: difficult to wake, sleepy for days, dizziness, post-op back/chest pain day after surgery ? r/t indigestion * Aunt/Cousin: Postop sleepiness History of PONV History of PONV and Hx of Motion Sickness Social History Smoking Status: Never smoker Do You Dip or Chew Tobacco: No Hx Alcohol Use: Yes alcohol intake frequency: a few times a month Hx Substance Use: No substance use type: does not use Review of Systems Patient denies chest pain, shortness of breath, dyspnea on exertion, fever, chills, cough, wheezing, palpitations. Physical Exam Vital Signs BP 125/79 P 75 TEMP 97.8 SP02 96%RA RESP 16 Physical Full cervical extension range of motion. Full TMJ range of motion. TMD > 3.5 finger breaths Mallampati Score III Dentition: missing molars, + possible crowns, upper front tooth repair (? Left or right) Lungs: clear throughout to auscultation Cardiac: regular rate and rhythm, no murmurs noted Spine: normal Carotid arteries: negative bruit Extremities: no LE edema Lab Results Anesthesia Preop Results Results Anesthesia Widget: WBC 6.97 K/ul (4.8-10.8) 06/11/25 Hgb 14.4 g/dl (12.0-16.0) 06/11/25 Hct 44.7 % (37.0-47.0) 06/11/25 Plt 235 K/uL (130-400) 06/11/25 Na 137 mmol/L (136-145) 06/11/25 K 4.1 mmol/L (3.5-5.1) 06/11/25 Cl 103 mmol/L (98-107) 06/11/25 CO2 26 mmol/L (21-32) 06/11/25 BUN 19 mg/dl (6-23) 06/11/25 Creat 1.07 mg/dl (0.6-1.2) 06/11/25 Glucose Level 101 mg/dl (70-99(Fasting)) H 06/11/25 PT 10.7 Seconds (9.0-12.0) 06/25/25 PTT 28 Seconds (21-31) 06/25/25 INR 1.0 (0.9-1.1) 06/25/25 TSH 0.418 uIu/ml (0.300-4.500) 06/25/25 Free T4 1.74 ng/dl (0.61-1.60) H 06/25/25 Blood Type O Negative 06/25/25 Antibody Screen NEGATIVE 06/25/25 Testing Electrocardiogram Date: 06/25/25 NSR at 68bpm. "Normal ECG" Chest X-Ray Date: 06/25/25 Findings: + NAD
--- NOTE | 2025-07-25 06:53 | History & Physical Report ---
Date of Service July 25, 2025 Assessment & Plan (1) Rotator cuff arthropathy of right shoulder: We will proceed with a right reverse shoulder arthroplasty. Postoperatively, she will be placed in a sling and will be part of her outpatient joint protocol. She will be discharged home on oral pain medications. She plans to use energy physical therapy after discharge. History of Present Illness Chief Complaint: Cuff tear arthropathy of the right shoulder. Primary Care Provider: Ghada Novak MD Kena is a pleasant 64-year-old female who underwent a right rotator cuff repair about 2 years ago. Unfortunately, she struggled since the repair. She did not have any traumas or falls, but she has had a progressive weakness with the shoulder. X-rays have shown some superior migration in the humeral head and the glenoid. There was a concern for a re-rupture of the rotator cuff. MRI confirmed complete rerupture of the rotator cuff and signs of cuff tear arthropathy. After failed conservative treatment, she has elected proceed with a right reverse shoulder arthroplasty. Allergies Allergy/AdvReac Type Severity Reaction Status Date / Time kiwi Allergy Intermediate Eyes swell Verified 07/16/25 09:29 shut, rash pineapple Allergy Intermediate Eyes swell Verified 07/16/25 09:29 shut, rash Sulfa (Sulfonamide Allergy Intermediate Swelling, Verified 07/16/25 09:29 Antibiotics) rash (as child) magnesium sulfate AdvReac Intermediate Vomiting Verified 07/16/25 09:29 [From Sutab] potassium chloride AdvReac Intermediate Vomiting Verified 07/16/25 09:29 [From Sutab] sodium sulfate [From Sutab] AdvReac Intermediate Vomiting Verified 07/16/25 09:29 tetracycline AdvReac Mild Headaches Verified 07/16/25 09:29 Home Medications Medication Instructions Recorded Confirmed Type furosemide 40 mg tablet 40 mg PO QAM #90 tabs 10/08/24 07/16/25 Rx levothyroxine 200 mcg tablet 200 mcg PO QAM #90 tabs 10/08/24 07/16/25 Rx spironolactone 25 mg tablet 25 mg PO BID #180 tabs 10/08/24 07/16/25 Rx doxycycline hyclate 100 mg capsule 100 mg PO .COMPLEX #45 caps 03/25/25 07/16/25 Rx phentermine 30 mg capsule 30 mg PO DAILY #30 caps 06/18/25 07/16/25 Rx meloxicam 7.5 mg tablet 7.5 mg PO DAILY PRN joint pain #90 06/27/25 07/16/25 Rx tabs clindamycin phosphate 1 % lotion 1 applic topical DAILY #60 mL 07/16/25 07/16/25 Rx Past Med/Surg History Problem List Rotator cuff arthropathy of right shoulder Impingement syndrome of left shoulder Postmenopausal atrophic vaginitis Urinary urgency Hyperlipidemia Irritable bowel syndrome with mixed bowel habits 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 Chronic edema Severe obesity (BMI >= 40) Osteoarthritis (Chronic) GERD (gastroesophageal reflux disease) (Chronic) Medical History Primary hypertension Per records Morbid obesity GERD (gastroesophageal reflux disease) Chronic edema B/L LE Chronic per PCP records- on Lasix and Spironolactone Hypothyroidism IBS (irritable bowel syndrome) Hx of hyperlipidemia hx borderline, no meds needed Neuropathy "mild", b/l thigh area, since knee replacement Dermatitis Facial, reason for Doxy Osteoarthritis Surgical History History of anesthesia reaction difficult to wake, sleepy for days, dizziness Nausea and vomiting after administration of anesthetic agent History of arthroscopy of right shoulder Right shoulder arthroscopy with RCR 03/24/23: Grade 2 view, MAC#4, ETT 7.0 + regional at [facility] S/P right rotator cuff repair History of colonoscopy Status post carpal tunnel release of both wrists S/P ORIF (open reduction internal fixation) fracture (~02/05/20) Left knee dislocation S/P knee replacement B/L History of tooth extraction History of thyroid surgery sub total History of dilatation and curettage x 2 History of cholecystectomy Family History Aunt Breast cancer Family history of reaction to anesthesia paternal aunt gets sleepy after anesthesia Father Prostate cancer Family/Other Breast cancer Family history of reaction to anesthesia paternal cousin gets sleepy after anesthesia Mother Myocardial infarction Grandfather (Maternal) Myocardial infarction Grandmother (Maternal) Diabetes Myocardial infarction Denies family history of Ovarian cancer Colorectal cancer Social History Smoking Status: Never smoker Second Hand Exposure: No; Do You Dip or Chew Tobacco: No; Tobacco Cessation Education Requested by Patient: No Hx Alcohol Use: Yes Hx Substance Use: No Preferred Language: Bangladeshi Communication Ability: Effective Crusher Setter Required: No Beliefs That Will Affect Care: None marital status: Current Living Situation: Alone Current Living Situation Comment: staying with parents after surgery current occupational status: employed current occupation: Teacher Other Information That Helps Us Care for You: No Feels Safe at Home: Yes Safety Concerns: Feels Safe At This Time Childhood Exposure to Second-Hand Smoke: Yes Dental Care, Regularly: Yes Physical Activity Frequency: 3-4 Times per Week Seatbelt Use: always Sunscreen Use: Yes Assistive Devices: Contacts and Glasses Review of Systems All systems reviewed & are unremarkable except as noted in HPI & below. Physical Exam On physical exam of the right shoulder, she has full forward elevation. She has 4 out of 5 motion throughout.. Constitutional WD/WN, vitals as above Eyes PERRL, conjunctivae normal, anicteric sclerae ENMT external ear and nose normal, oropharynx normal Neck trachea midline, no thyromegaly Respiratory normal respiratory effort Cardiovascular RRR, no murmur, no edema Gastrointestinal (Abdomen) normal bowel sounds, soft, nontender, no hepatosplenomegaly Psychiatric A+Ox3, euthymic affect Results & Data Results & Data Laboratory Results . Diagnostic Findings . PG Care Time/CCT Total # of Minutes Spent Total Time Spent with Patient: Total time spent is greater than 50% in coordination of care (as documented) at patient's floor/unit and/or counseling patient: Coding Level of Care Code None Diagnoses Rotator cuff arthropathy of right shoulder M12.811
[~2025-07-26 11:06] MED LIST changes: +BUPIVACAINE 0.5 % 5 MG/1 ML PF 10ML VIAL ONE; -FURO40TA3 PO; -GABA1CAP4 PO; -SPR25 PO; -SYN200 PO
[2025-07-26] MEDS: ACETAMINOPHEN 500 MG TAB PO SCH ×2 (11:54→22:01)
[2025-07-26] MEDS: GABAPENTIN 600 MG DOSE PO SCH (11:54)
[2025-07-26] MEDS: LR 60ML/HR IV SCH (11:54)
[2025-07-26] MEDS: FAMOTIDINE 20 MG TAB PO SCH (11:55)
[2025-07-26] MEDS: dexAMETHasone**PF** 10 MG/ML VIAL IV SCH (11:55)
[2025-07-26] MEDS ORDERED: PROPOFOL IV EMULSION 10 MG/ML 20 ML VIAL IV ONE (12:01)
[2025-07-26] MEDS ORDERED: LIDOCAINE 2% 2 ML VIAL/AMP(20MG/ML) INFIL ONE ×2 (12:01)
[2025-07-26] MEDS ORDERED: ONDANSETRON INJ 2 MG/ML 2 ML VIAL ONE (12:01)
[2025-07-26] MEDS ORDERED: DEXAMETHASONE SOD INJ 4 MG/ML VIAL ONE ×2 (12:01→12:05)
[2025-07-26] MEDS ORDERED: MIDAZOLAM HCL 1 MG/ML 2ML VIAL ONE (12:02)
--- NOTE | 2025-07-26 12:20 | History & Physical Bridge Note ---
Date of Service July 26, 2025 History & Physical Bridge Note I have examined the patient, reviewed the History & Physical and in the interval since the performance of the History & Physical I have noted the following changes of clinical significance: no changes noted
[2025-07-26] MEDS ORDERED: ATROPINE SULFATE 0.1 MG/ML 10ML SYR IV PRN (12:25)
[2025-07-26] MEDS ORDERED: PROMETHAZINE HCL 6.25 MG in SODIUM CHLORIDE 0.9% 50 ML IV PRN (12:25)
[2025-07-26] MEDS: TRANEXAMIC ACID 1,000 MG **IV Pre-op IV SCH (13:15)
[2025-07-26] MEDS: ceFAZolin 3000MG 3,000 MG/72.5 ML BAG IV SCH (13:20)
[2025-07-26] MEDS: ROPIV 0.5% 246mg, Ketorolac 30mg, EPINEPHrine 0.5mg in NSS INFIL SCH (13:58)
[2025-07-26] MEDS: ORTHO JOINT ANESTHETIC ONE (13:59)
--- NOTE | 2025-07-26 14:18 | Operative Report ---
PG Post Operative Report Pre & Post Diagnosis Operation Date: 07/26/25 13:00 Pre-Op Diagnosis: Culture arthropathy right shoulder Post-Op Diagnosis: Cuff tear arthropathy right shoulder I identified the patient and participated in the time-out.: Yes Procedure Operation Date: 07/26/25 13:00 Actual Procedures p Right Total Shoulder Arthroplasty Reverse(Right) - Berto Humphrey DO Surgeon Berto Humphrey DO Silica Filter Operator Morris Silva PA-C Estimated Blood Loss 200 Findings Consistent with Post-Op Diagnosis Specimens Right humeral head Description of Procedure A CPT code modifier 59: The long head of the biceps tendon was enlarged and inflamed consistent with tendinopathy. A tenodesis was opted. This was a separate and distinct portion of the procedure. For these reasons, a CPT code modifier 59 will be added to this case. Implants used: I used a [employer]omet Comprehensive reverse total shoulder arthroplasty system with a size 12 press fit micro humeral stem, a +6 offset humeral tray and a standard humeral bearing, a 25 mm small augment baseplate with a 6.5 mm central screw and superior and inferior locking screws, and a size 36 mm eccentric glenosphere. Kena arrived at [facility] for the above procedure. He was seen in the preoperative holding area and the operative extremity was identified and signed. He was given a preoperative antibiotic, TXA, and an interscalene nerve block. He was taken back to the operating room, laid on table in supine position, and put under general anesthesia. He was then put into the beachchair position. The shoulder was then prepped and draped in sterile fashion. A timeout was done and the patient and the operative extremity was properly identified. A deltopectoral approach was used. Dissection was taken down through the fascia and the deltoid was retracted laterally and the conjoined tendon was retracted medially. The anterior shoulder was exposed. The biceps groove was opened up and the biceps tendon was examined extensively. The biceps tendon demonstrated enlargement and inflammatory changes consistent with longstanding inflammation in the context of osteoarthritis and cuff arthropathy. The long head of the biceps tendon was then tenodesed to the upper border of the pectoralis major. This was a separate and distinct portion of the procedure. The subscapularis was then directly released off the lesser tuberosity with a peel technique. The inferior capsule was released and the humeral head was dislocated. A canal finding reamer was sent down the center of the humeral canal. Sequential reaming up to a size 12 reamer was done. Off that reamer, a proximal humeral resection guide was placed. The proximal humerus was resected at 135 of inclination and 25 of retroversion. Osteophytes were then removed and the glenoid was exposed. Time was spent doing a complete capsular and labral release. The glenoid guide was then placed in the inferior aspect of the glenoid. A 3.2 mm Steinmann pin was then placed into the glenoid vault at 10 of inclination. The glenoid baseplate was then reamed. The final size 25 mm small augment baseplate was then impacted in the place. A 6.5 mm central screw was then placed followed by superior and inferior locking screws. A 36 eccentric glenosphere was then impacted into place. Surrounding soft tissues were then injected with 100 cc an orthopedic pain control cocktail. The proximal humerus was then exposed. Sequential broaching of the humerus up to a size 12 broach was done. Off that broach a +6 offset humeral tray was trialed. The shoulder was then reduced, brought through a full range of motion, and felt to be stable. The shoulder was then dislocated and the broach was removed. The final size 12 micro press-fit humeral stem was then impacted into place. A standard humeral bearing was then snapped onto a +6 offset humeral tray. The humeral tray was then impacted onto the humeral stem. The shoulder was once again reduced, brought through a full range of motion, and felt to be stable. The subscapularis was poor quality and unable to be repaired.. A dilute betadyne lavage was then done for 3 minutes. The joint was then irrigated with normal saline solution. Hemostasis was obtained. The interval was closed with 2-0 Vicryl suture. The skin was then closed with 2-0 Vicryl and [place] Zipline. A Silverlon dressing was placed and the arm was rested in a regular arm sling. He was then extubated and transferred to a hospital bed. He taken to the postanesthesia care unit in stable condition. He tolerated the procedure well. Morris Silva PA-C, was present for the entire procedure. He was critical for patient positioning, prepping, draping, retraction exposure, wound closure and application of sterile dressing. I attest to the content of the Intraoperative Record and any orders documented therein. Any exceptions are noted below.
--- NOTE | 2025-07-26 15:06 | XRay Report ---
XR shoulder RT min 2V routine CLINICAL HISTORY: Post shoulder surgery COMPARISON: None FINDINGS: Right shoulder prosthesis shows no hardware complication. There is expected soft tissue ga s. There is mild atelectasis right lung base. IMPRESSION: Unremarkable postoperative exam. ACT 112: Negative or not required by law. Electronically signed by: Aleksey Pratt M.D. 07/26/2025 3:05 PM
[2025-07-26] MEDS: ONDANSETRON INJ 2 MG/ML 2 ML VIAL IV PRN (15:25)
--- NOTE | 2025-07-26 16:02 | Anesthesiology Progress Note ---
Date of Service July 26, 2025 Anesthesia Post Procedure Vital Signs Vital Signs: Temp Pulse Resp BP Pulse Ox O2 Del Method O2 Flow Rate 07/26/25 15:50 63 15 129/64 93 Room Air 07/26/25 15:40 63 18 151/71 H 100 Room Air 07/26/25 15:30 73 23 141/92 H 100 Room Air 07/26/25 15:20 67 17 154/70 H 94 Room Air 07/26/25 15:10 68 17 154/72 H 92 Room Air 07/26/25 15:00 70 21 164/73 H 96 Oxymask 2 07/26/25 14:50 79 19 125/99 100 Oxymask 4 07/26/25 14:44 36.0 C L 79 19 153/65 H 95 Oxymask 4 07/26/25 11:40 36.6 C 80 12 155/90 H 98 Room Air Transfer of Care Handoff Completed per policy Notes Mental Status: alert / awake / arousable Patient Amnestic to Procedure: Yes Nausea / Vomiting: adequately controlled Pain: adequately controlled Airway Patency, RR, SpO2: stable & adequate BP & HR: stable & adequate Hydration State: stable & adequate Anesthetic Complications: no major complications apparent and Pt Satisfied with anesthetic care
[2025-07-26] MEDS: BUPIVACAINE LIPOSOME 1.3% 133 MG/10 ML VIAL ONE (16:16)
[2025-07-26] MEDS: LR 15ML/HR IV SCH (16:16)
[2025-07-26] MEDS ORDERED: ONDANSETRON INJ 2 MG/ML 2 ML VIAL IV PRN (16:17)
[2025-07-26] MEDS ORDERED: MAGNESIUM HYDROXIDE SUSP 30 ML UDC PO PRN (16:17)
[2025-07-26] MEDS ORDERED: NALOXONE HCL 0.4 MG/1 ML VIAL/CARP IV PRN (16:17)
[2025-07-26] MEDS ORDERED: METOCLOPRAMIDE HCL INJ 5 MG/ML 2 ML VIAL IV PRN (16:17)
[2025-07-26] MEDS ORDERED: HYDROmorphone INJ 0.5 MG/0.5 ML SYR IV PRN (16:17)
[2025-07-26] MEDS: SPIRONOLACTONE 25 MG TAB PO SCH (16:44)
[2025-07-26] MEDS: SODIUM CHLORIDE 0.9% 1,000 ML IV SCH (16:55)
[2025-07-26] MEDS: KETOROLAC TROMETHAMINE 15 MG/ML VIAL IV SCH (16:55)
[2025-07-26] MEDS: SENNA 8.6 MG TAB PO SCH (20:46)
[2025-07-26] MEDS: DOCUSATE SODIUM 100 MG CAP PO SCH (20:46)
[2025-07-26] MEDS: ASPIRIN 81 MG ECTAB PO SCH (20:46)
[2025-07-27] MEDS: LEVOTHYROXINE SODIUM 200 MCG TABLET PO SCH (05:55)
--- NOTE | 2025-07-27 07:45 | Orthopedic Progress Note ---
Date of Service July 27, 2025 Assessment & Plan (1) Rotator cuff arthropathy of right shoulder: Overall she is doing very well. She is not having much pain in the right shoulder. She feels much more awake today. She will be seen by physical therapy today for ambulation and range of motion exercises. She can be discharged to home. She will follow-up with orthopedics in 2 weeks. Howie Escudero was seen and examined at bedside this morning. Overall she is doing very well. She is not having much pain in the right shoulder. She was kept overnight because she was a little bit slow to wake up from the anesthesia. She is feeling much better today and has no complaints.. Review of Systems All systems reviewed & are unremarkable except as noted in HPI & below. Physical Exam On physical exam of the right shoulder, the dressing is clean and dry. She is wearing her sling as instructed. The nerve block is still in effect.. Results & Data Results & Data Laboratory Results . Diagnostic Findings Postoperative x-rays of the right shoulder show the prosthesis to be in anatomic alignment without any evidence of fracture complication, or loosening.. PG Care Time/CCT Total # of Minutes Spent Total Time Spent with Patient: Total time spent is greater than 50% in coordination of care (as documented) at patient's floor/unit and/or counseling patient: Coding Level of Care Code 57968 Post Operative Follow-Up Diagnoses Rotator cuff arthropathy of right shoulder M12.811
[2025-07-27 08:31] VITALS: BP 146/81; PULSE 72; RESP 16; TEMP 97.5; O2SAT 93
[2025-07-27] MEDS: FUROSEMIDE 40 MG TAB PO SCH (09:27)
[2025-07-27] MEDS: MULTIVITAMIN TAB PO SCH (09:27)
== END 2025-07-27 11:06 | disposition home or self-care (01) ==
LOC: 3W 11:06 → ASU 11:06